=== PATIENT | male | born 1970 | race Caucasian/White ===

== ENCOUNTER 2016-11-10 09:21 | Inpatient (IN) | payer OTHER ==
--- NOTE | 2016-11-10 09:51 | HP ---
CIWA Score - CIWA Score Nausea/Vomitin-Mild Nausea/No Vomiting Muscle Tremors: 1-None Visible, but [place] Anxiety: 4-Mod. Anxious/Guarded Agitation: 1-Slight > Activity Paroxysmal Sweats: 1-Minimal Palms Moist Orientation: 0-Oriented Tacttile Disturbances: 1-Very Mild Itch/Numbness Auditory Disturbances: 1-Very Mild Visual Disturbances: 2-Mild Sensitivity Headache: 2-Mild CIWA-Ar Total Score: 14 Admission ROS [facility] - HPI Chief Complaint: I want my life back, to get off drugs. Allergies/Adverse Reactions: Allergies Allergy/AdvReac Type Severity Reaction Status Date / Time No Known Allergies Allergy Verified 12/21/13 10:28 History of Present Illness: 46 yo gentleman here for detox from alcohol, alprazolam, also using marijuana, cocaine, and recreational suboxone. No seizures. Previous detox here in 2013 and [facility] - thinks a month ago. States his partner last year from overdose and he is trying to get clean and straight and return to working. Exam Limitations: Clinical Condition - Ebola screening Have you traveled outside of the country in the last 21 days: No Have you had contact with anyone from an Ebola affected area: No Have you been sick,other than usual withdrawal symptoms: No Do you have a fever: No - Review of Systems Constitutional: Malaise, Changes in sleep, Weakness, Unexplained wgt Loss EENT: reports: No Symptoms Reported Respiratory: reports: No Symptoms reported Cardiac: reports: No Symptoms Reported GI: reports: Poor Appetite : reports: Frequency Musculoskeletal: reports: No Symptoms Reported Integumentary: reports: Dryness Neuro: reports: Headache Endocrine: reports: No Symptoms Reported Hematology: reports: No Symptoms Reported Psychiatric: reports: Judgement Intact, Mood/Affect Appropiate, Orientated x3, Anxious Other Systems: Reviewed and Negative Patient History - Patient Medical History Hx Anemia: No Hx Asthma: No Hx Chronic Obstructive Pulmonary Disease (COPD): No Hx Cancer: No Hx Cardiac Disorders: No Hx Congestive Heart Failure: No Hx Hypertension: No Hx Pacemaker: No HX Cerebrovascular Accident: No Hx Seizures: No Hx Dementia: No Hx Diabetes: No Hx Gastrointestinal Disorders: No Hx Liver Disease: No Hx Genitourinary Disorders: No Hx Sexually Transmitted Disorders: Yes (treated with PCN years ago) Hx Renal Disease (ESRD): No Hx Thyroid Disease: No Hx Human Immunodeficiency Virus (HIV): Yes (since 2002 - on meds, CD4 about 350 , tx at [facility]) Hx Hepatitis C: No Hx Depression: No Hx Suicide Attempt: No Hx Bipolar Disorder: No Hx Schizophrenia: No - Patient Surgical History Past Surgical History: No Hx Neurologic Surgery: No Hx Cataract Extraction: No Hx Cardiac Surgery: No Hx Lung Surgery: No Hx Breast Surgery: No Hx Breast Biopsy: No Hx Abdominal Surgery: No Hx Appendectomy: No Hx Cholecystectomy: No Hx Genitourinary Surgery: No Hx Section: No Hx Orthopedic Surgery: No Anesthesia Reaction: No - PPD History Previous Implant?: Yes Documented Results: Negative w/o proof Date: 06/14/13 Results: 0 mm PPD to be Administered?: Yes - Reproductive History Patient is a Female of Child Bearing Age (11 -55 yrs old): No (male) - Smoking Cessation Smoking history: Current every day smoker Have you smoked in the past 12 months: Yes Aproximately how many cigarettes per day: 2 Cigars Per Day: 0 Hx Chewing Tobacco Use: No Initiated information on smoking cessation: Yes 'Breaking Loose' booklet given: 11/10/16 (give on floor) - Substance & Tx. History Hx Alcohol Use: Yes Hx Substance Use: Yes Substance Use Type: Alcohol, Cocaine, Marijuana, Tranquilizers Hx Substance Use Treatment: Yes (detox , rehab) - Substances Abused Alcohol Route: Oral Frequency: Daily Amount used: 2 pints vodka Age of first use: 23 Date of Last Use: 11/10/16 Cocaine Route: Inhalation Frequency: 1-2 times per week Amount used: $20 Age of first use: 23 Date of Last Use: 11/09/16 Marijuana/Hashish Route: Smoking Frequency: Daily Amount used: $20 Age of first use: 9 Date of Last Use: 11/10/16 Alprazolam (Xanax) Route: Oral Frequency: 1-2 times per week Amount used: 4mg Age of first use: 46 Date of Last Use: 11/07/16 Buprenorphine Route: Oral Frequency: 3-6 times per week Amount used: 8mg Age of first use: 46 Date of Last Use: 11/08/16 Family Disease History - Family Disease History Family Disease History: Other: Father (IVDU,bio father ), Mother (bio mom , AIDS, ) Admission Physical Exam [facility] - Vital Signs Vital Signs: Vital Signs - 24 hr 11/10/16 09:39 Temperature 96 F L Pulse Rate 89 Respiratory 20 Rate Blood Pressure 120/70 - Physical General Appearance: Yes: Nourished, Appropriately Dressed, Mild Distress, Anxious HEENTM: Yes: Hearing grossly Normal, Normal ENT Inspection, Normocephalic, Normal Voice, Pharynx Normal Respiratory: Yes: Normal Breath Sounds, No Respiratory Distress Neck: Yes: No masses,lesions,Nodules, Supple Breast: Yes: Breast Exam Deferred Cardiology: Yes: Regular Rhythm, Regular Rate Abdominal: Yes: Flat, Soft Genitourinary: Yes: Frequency Back: Yes: Normal Inspection Musculoskeletal: Yes: full range of Motion, Gait Steady Extremities: Yes: Normal Inspection, Normal Range of Motion, Non-Tender Neurological: Yes: Fully Oriented, Alert, Normal Mood/Affect, Normal Response Integumentary: Yes: Normal Color, Warm Lymphatic: Yes: Within Normal Limits - Diagnostic (1) Alcohol dependence Current Visit: Yes Status: Chronic (2) Cannabis dependence Current Visit: Yes Status: Chronic (3) Cocaine dependence Current Visit: Yes Status: Chronic (4) Human immunodeficiency virus infection Current Visit: No Status: Active (5) Weight decreased Current Visit: Yes Status: Chronic (6) Moderate alprazolam dependence Current Visit: Yes Status: Chronic (7) History of syphilis Current Visit: Yes Status: Chronic Comment: treated years ago Cleared for Admission [facility] - Detox or Rehab [facility] Level of Care: Medically Managed Detox Regimen/Protocol: Librium [facility] Breath Alcohol Content Breath Alcohol Content: 0.036 Urine Drug Screen - Results Drug Screen Negative: No Urine Drug Screen Results: THC-Marijuana, CHUCHO-Cocaine
[2016-11-10] MEDS ORDERED: P-EPHED 60MG/TRIPROLIDI 2.5MG TABLET PO PRN (10:07)
[2016-11-10] MEDS ORDERED: hydrOXYzine PAMOATE 50 MG CAPSULE (FP) PO PRN (10:07)
[2016-11-10] MEDS ORDERED: IBUPROFEN 400 MG TABLET (FP) PO PRN (10:07)
[2016-11-10] MEDS ORDERED: MAGNESIUM HYDROX 2400MG/30ML ORAL SUSPENSION 30 ML CUP PO PRN (10:07)
[2016-11-10] MEDS ORDERED: MAGNESIUM CITRATE 300 ML BOTTLE PO PRN (10:07)
[2016-11-10] MEDS ORDERED: MENTHOL/PHENOL 1 EACH UD MM PRN (10:07)
[2016-11-10] MEDS ORDERED: guaiFENesin/D-METHORPHAN HB 10 ML UNIT-DOSE CUPS PO PRN (10:07)
[2016-11-10] MEDS ORDERED: chlordiazePOXIDE HCL 25 MG CAPSULE PO PRN (10:07)
[2016-11-10] MEDS ORDERED: MAG HYDROX/AL HYDROX/SIMETH 30 ML UNIT-DOSE CUP PO PRN (10:07)
[2016-11-10] MEDS ORDERED: LOPERAMIDE HCL 2 MG CAPSULE PO PRN (10:07)
[2016-11-10] MEDS ORDERED: diphenhydrAMINE HCL 50 MG CAPSULE PO PRN (10:07)
[2016-11-10] MEDS ORDERED: chlordiazePOXIDE HCL 25 MG CAPSULE PO ONE (11:30)
[2016-11-10] MEDS: chlordiazePOXIDE HCL 25 MG CAPSULE PO SCH ×2 (17:38→22:39)
[2016-11-10 18:20] LABS: URINE APPEARANCE CLEAR; URINE BILIRUBIN NEGATIVE (NEGATIVE); URINE BLOOD NEGATIVE (NEGATIVE); URINE COLOR STRAW; URINE GLUCOSE (UA) NEGATIVE (NEGATIVE); URINE KETONE NEGATIVE (NEGATIVE); URINE LEUK ESTERASE NEGATIVE (NEGATIVE); URINE NITRITE NEGATIVE (NEGATIVE); URINE PROTEIN NEGATIVE (NEGATIVE); URINE UROBILINOGEN NEGATIVE mg/dL (0.2-1.0)
[2016-11-10] MEDS: THIAMINE HCL 100 MG TABLET (FP) PO SCH (22:39)
[2016-11-10] MEDS: ACETAMINOPHEN 325 MG TABLET (FP) PO PRN (22:41)
[2016-11-11] MEDS: chlordiazePOXIDE HCL 25 MG CAPSULE PO SCH ×4 (05:30→23:17)
--- NOTE | 2016-11-11 08:11 | EKG ---
Test Reason : Blood Pressure : / mmHG Vent. Rate : 060 BPM Atrial Rate : 060 BPM P-R Int : 116 ms QRS Dur : 096 ms QT Int : 434 ms P-R-T Axes : 050 076 064 degrees QTc Int : 434 ms NORMAL SINUS RHYTHM VOLTAGE CRITERIA FOR LEFT VENTRICULAR HYPERTROPHY ABNORMAL ECG NO PREVIOUS ECGS AVAILABLE Confirmed by ALBIN VALLEJO MD ([id number]) on 11/11/2016 8:10:35 AM Referred By: Confirmed By:ALBIN VALLEJO MD
[2016-11-11 09:18] LABS: MCHC 33.3 g/dl (32.0-35.9); MEAN CELL VOLUME 93.1 fl (80-96); MEAN PLT VOLUME 8.6 fl (7.5-11.1); PLATELET COUNT 177 K/MM3 (134-434); RDW 13.9 % (11.9-15.9); WHITE BLOOD COUNT 4.4 K/mm3 (4.0-10.0)
[2016-11-11 09:49] LABS: ALBUMIN 3.5 g/dl (3.4-5.0); ANION GAP 4 (8-16); CALCIUM 8.9 mg/dL (8.5-10.1); CO2 31 mmol/L (21-32); CREATININE 1.1 mg/dL (0.7-1.3); GLUCOSE,RANDOM 86 mg/dL (74-106); SGOT/AST 32 U/L (15-37); SGPT/ALT 33 U/L (12-78)
[2016-11-11 09:50] LABS: ALK PHOS 71 U/L (45-117); BILIRUBIN,TOTAL 0.4 mg/dL (0.2-1.0); TOT PROT 6.8 g/dl (6.4-8.2)
[2016-11-11] MEDS ORDERED: PRENATAL VITAMINS W/ FOLIC ACID TABLET (FP) PO SCH (10:00)
--- NOTE | 2016-11-11 12:24 | PN ---
S CIWA - CIWA Score Nausea/Vomitin Muscle Tremors: 3 Anxiety: 3 Agitation: 2 Paroxysmal Sweats: 1-Minimal Palms Moist Orientation: 0-Oriented Tacttile Disturbances: 1-Very Mild Itch/Numbness Auditory Disturbances: 1-Very Mild Visual Disturbances: 1-Very Mild Sensitivity Headache: 2-Mild CIWA-Ar Total Score: 17 BHS Progress Note (SOAP) Subjective: ALERT,IRRITABLE,ANXIOUS,INTERRUPTED SLEEP,TREMOR Objective: 11/11/16 12:22 Vital Signs Temperature 98.4 F 11/11/16 10:29 Pulse Rate 61 11/11/16 10:29 Respiratory Rate 18 11/11/16 10:29 Blood Pressure 104/65 11/11/16 10:29 O2 Sat by Pulse Oximetry (%) EKG NSR Laboratory Last Values WBC 4.4 K/mm3 (4.0-10.0) 11/11/16 07:40 RBC 4.55 M/mm3 (4.00-5.60) 11/11/16 07:40 Hgb 14.1 GM/dL (11.7-16.9) D 11/11/16 07:40 Hct 42.3 % (35.4-49) 11/11/16 07:40 MCV 93.1 fl (80-96) 11/11/16 07:40 MCH 31.0 pg (25.7-33.7) 11/11/16 07:40 MCHC 33.3 g/dl (32.0-35.9) 11/11/16 07:40 RDW 13.9 % (11.9-15.9) 11/11/16 07:40 Plt Count 177 K/MM3 (134-434) 11/11/16 07:40 MPV 8.6 fl (7.5-11.1) D 11/11/16 07:40 Sodium 139 mmol/L (136-145) 11/11/16 07:40 Potassium 3.7 mmol/L (3.5-5.1) 11/11/16 07:40 Chloride 104 mmol/L (98-107) 11/11/16 07:40 Carbon Dioxide 31 mmol/L (21-32) D 11/11/16 07:40 Anion Gap 4 (8-16) L 11/11/16 07:40 BUN 23 mg/dL (7-18) H D 11/11/16 07:40 Creatinine 1.1 mg/dL (0.7-1.3) 11/11/16 07:40 Creat Clearance w eGFR > 60 (>60) 11/11/16 07:40 Random Glucose 86 mg/dL (74-106) D 11/11/16 07:40 Calcium 8.9 mg/dL (8.5-10.1) 11/11/16 07:40 Total Bilirubin 0.4 mg/dL (0.2-1.0) D 11/11/16 07:40 AST 32 U/L (15-37) 11/11/16 07:40 ALT 33 U/L (12-78) D 11/11/16 07:40 Alkaline Phosphatase 71 U/L (45-117) 11/11/16 07:40 Total Protein 6.8 g/dl (6.4-8.2) 11/11/16 07:40 Albumin 3.5 g/dl (3.4-5.0) D 11/11/16 07:40 Urine Color Straw 11/10/16 14:27 Urine Appearance Clear 11/10/16 14:27 Urine pH 7.0 (5.0-8.0) D 11/10/16 14:27 Ur Specific [place] 1.010 (1.005-1.025) 11/10/16 14:27 Urine Protein Negative (NEGATIVE) 11/10/16 14:27 Urine Glucose (UA) Negative (NEGATIVE) 11/10/16 14:27 Urine Ketones Negative (NEGATIVE) 11/10/16 14:27 Urine Blood Negative (NEGATIVE) 11/10/16 14:27 Urine Nitrite Negative (NEGATIVE) 11/10/16 14:27 Urine Bilirubin Negative (NEGATIVE) 11/10/16 14:27 Urine Urobilinogen Negative mg/dL (0.2-1.0) 11/10/16 14:27 Ur Leukocyte Esterase Negative (NEGATIVE) 11/10/16 14:27 Assessment: 11/11/16 12:23 WITHDRAWAL SYMPTOM Plan: CONTINUE DETOX,ENCOURAGE ORAL FLUID
[2016-11-11 14:03] VITALS: TEMP 97.5
[2016-11-11] MEDS: ACETAMINOPHEN 325 MG TABLET (FP) PO PRN (17:47)
[2016-11-11 18:29] VITALS: BP 115/67; PULSE 71
--- NOTE | 2016-11-11 23:09 | PN ---
[facility] Progress Note Note: 'S NOTE: INFORMED AT ABOUT 11:00PM THAT THE PT. WANTS TO SIGN OUT AMA FOR PERSONAL REASONS SO, THE PT. SIGNED OUT AMA AND ABOUT TO LEAVE THE FACILITY SOON IN STABLE CONDITION. RECOMMENDED: TO F/U WITH PMD AND OUT PT. PROGRAMS. PROVIDER: SADIE ZELAYA MD
[2016-11-11] MEDS: THIAMINE HCL 100 MG TABLET (FP) PO SCH (23:16)
[2016-11-12] MEDS ORDERED: chlordiazePOXIDE 5 MG CAPSULE PO SCH (17:00)
[2016-11-13] MEDS ORDERED: chlordiazePOXIDE HCL 10 MG CAPSULE PO SCH (17:00)
== END 2016-11-11 23:00 | disposition left against medical advice (07) | DRG 770 ==
LOC: YASAS 09:21 → Y6N 11:30
PROVIDERS: ADMIT Internal Medicine; ATTEND Internal Medicine
PROC: HZ2ZZZZ Detoxification Services for Substance Abuse Treatment (ICD-10-PCS; principal; 2016-11-10)
DX: F10.230 Alcohol dependence with withdrawal, uncomplicated (principal); F13.20 Sedative, hypnotic or anxiolytic dependence, uncomplicated; F14.20 Cocaine dependence, uncomplicated; F12.20 Cannabis dependence, uncomplicated; F17.210 Nicotine dependence, cigarettes, uncomplicated; Z21 Asymptomatic human immunodeficiency virus [HIV] infection status; Z87.438 Personal history of other diseases of male genital organs; Z87.898 Personal history of other specified conditions
CPT/HCPCS: 36415; 80053; 81003; 85027; 86593; 93005; 93010

== ENCOUNTER 2018-07-25 11:42 | Inpatient (IN) | payer OTHER ==
[2018-07-25 13:11] VITALS: BMI 19.5
--- NOTE | 2018-07-25 14:18 | HP ---
CIWA Score Nausea/Vomitin Muscle Tremors: 2 Anxiety: 2 Agitation: 2 Paroxysmal Sweats: 1-Minimal Palms Moist Orientation: 0-Oriented Tacttile Disturbances: 1-Very Mild Itch/Numbness Auditory Disturbances: 1-Very Mild Visual Disturbances: 0-None Headache: 2-Mild CIWA-Ar Total Score: 13 - Admission Criteria [facility] Guidelines: Admission for Medically Managed Detox: Requires at least one of the followin. CIWA greater than 12 2. Seizures within the past 24 hours 3. Delirium tremens within the past 24 hours 4. Hallucinations within the past 24 hours 5. Acute intervention needed for co occurring medical disorder 6. Acute intervention needed for co occurring psychiatric disorder 7. Severe withdrawal that cannot be handled at a lower level of care (continued vomiting, continued diarrhea, abnormal vital signs) requiring intravenous medication and/or fluids 8. Admission ROS [facility] Chief Complaint: i nee dhelp to stop drinking alcohol,xanax,cocaine and marijuana Allergies/Adverse Reactions: Allergies Allergy/AdvReac Type Severity Reaction Status Date / Time No Known Allergies Allergy Verified 07/25/18 13:03 History of Present Illness: this 47 yeas old male with alcohol,cocaine,xanax and marijuana dependence, seeking detox,withdrawal symptom, multiple admissions in detox but keep relapsing last detox 11/10/16 to 11/11/16 not completed weight loss nicotine dependence 4 cigarette/day,doest not want nicotine replacement longest period of sobriety 3 and half year plan for rehab after detox hiv since 2002 Exam Limitations: No Limitations - Ebola screening Have you traveled outside of the country in the last 21 days: No (N) Have you had contact with anyone from an Ebola affected area: No Do you have a fever: No - Review of Systems Constitutional: Loss of Appetite, Malaise, Night Sweats, Changes in sleep, Weakness, Unintentional Wgt. Loss EENT: reports: Nose Congestion Respiratory: reports: No Symptoms reported Cardiac: reports: No Symptoms Reported GI: reports: Nausea, Vomiting, Abdominal cramping : reports: No Symptoms Reported Musculoskeletal: reports: Back Pain, Muscle Pain Integumentary: reports: Dryness Neuro: reports: Headache, Tremors Endocrine: reports: No Symptoms Reported Hematology: reports: No Symptoms Reported, Other (hiv since 2002) Psychiatric: reports: No Sypmtoms Reported, Judgement Intact, Mood/Affect Appropiate, Orientated x3, other Other Systems: Reviewed and Negative Patient History - Patient Medical History Hx Anemia: No Hx Asthma: No Hx Chronic Obstructive Pulmonary Disease (COPD): No Hx Cancer: No Hx Cardiac Disorders: No Hx Congestive Heart Failure: No Hx Hypertension: No Hx Pacemaker: No HX Cerebrovascular Accident: No Hx Seizures: No Hx Dementia: No Hx Diabetes: No Hx Gastrointestinal Disorders: No Hx Liver Disease: No Hx Genitourinary Disorders: No Hx Sexually Transmitted Disorders: Yes (treated with PCN years ago,history of syphilis) Hx Renal Disease (ESRD): No Hx Thyroid Disease: No Hx Human Immunodeficiency Virus (HIV): Yes (since 2002 - on meds, CD4 about 350 , tx at [facility]) Hx Hepatitis C: No Hx Depression: No Hx Suicide Attempt: No Hx Bipolar Disorder: No Hx Schizophrenia: No Other Medical History: no sucidal,no homicidal,fx of right forearm at age of 21 years - Patient Surgical History Past Surgical History: No Hx Neurologic Surgery: No Hx Cataract Extraction: No Hx Cardiac Surgery: No Hx Lung Surgery: No Hx Breast Surgery: No Hx Breast Biopsy: No Hx Abdominal Surgery: No Hx Appendectomy: No Hx Cholecystectomy: No Hx Genitourinary Surgery: No Hx Section: No Hx Orthopedic Surgery: No Anesthesia Reaction: No - PPD History Previous Implant?: Yes Documented Results: Negative w/o proof Implanted On Prior R Admission?: Yes Date: 11/12/16 Results: 0 mm PPD to be Administered?: Yes - Smoking Cessation Smoking history: Current every day smoker Have you smoked in the past 12 months: Yes Aproximately how many cigarettes per day: 4 Cigars Per Day: 0 Hx Chewing Tobacco Use: No Initiated information on smoking cessation: Yes 'Breaking Loose' booklet given: 07/25/18 - Substance & Tx. History Hx Alcohol Use: Yes Hx Substance Use: Yes Substance Use Type: Alcohol, Cocaine, Marijuana, Tranquilizers Hx Substance Use Treatment: Yes ([facility] 11/10/16 to 11/11/16) - Substances abused Alcohol Substance route: Oral Frequency: Daily Amount used: 2 PINTS VODKA Age of first use: 23 Date of last use: 07/25/18 Alprazolam (Xanax) Substance route: Oral Frequency: Daily Amount used: 2-3 2MG Age of first use: 46 Date of last use: 07/25/18 Cocaine Other (specify): SNIFF Frequency: 1-2 times per week Amount used: $30 Age of first use: 23 Date of last use: 07/25/18 Marijuana/Hashish Substance route: Smoking Frequency: Daily Amount used: 20$ Age of first use: 9 Date of last use: 07/25/18 Family Disease History - Family Disease History Family Disease History: Other: Father (IVDU,bio father ), Mother (bio mom , AIDS, ) Admission Physical Exam [facility] - Vital Signs Vital Signs: Vital Signs - 24 hr 07/25/18 07/25/18 13:05 13:49 Temperature 98.5 F 98.5 F Pulse Rate 88 88 Respiratory 18 18 Rate Blood Pressure 90/59 L 90/59 L - Physical General Appearance: Yes: Moderate Distress, Tremorous, Irritable, Sweating, Anxious HEENTM: Yes: Normal ENT Inspection, Normocephalic, Pharynx Normal Respiratory: Yes: Lungs Clear, Normal Breath Sounds, No Respiratory Distress Neck: Yes: Within Normal Limits, Supple, Trachea in good position Breast: Yes: Within Normal Limits Abdominal: Yes: Within Normal Limits, Normal Bowel Sounds, Non Tender, Soft Genitourinary: Yes: Within Normal Limits Back: Yes: Muscle Spasm Musculoskeletal: Yes: Back pain, Muscle Pain Extremities: Yes: Tremors Neurological: Yes: Within Normal Limits, 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, Fully Oriented, Alert, Motor Strength 5/5 Integumentary: Yes: Dry - Diagnostic (1) Alcohol dependence with uncomplicated withdrawal Current Visit: Yes Status: Acute (2) Cannabis dependence Current Visit: No Status: Chronic (3) Uncomplicated sedative, hypnotic or anxiolytic withdrawal Current Visit: Yes Status: Acute (4) Human immunodeficiency virus infection Current Visit: No Status: Active (5) Syncope Current Visit: No Status: Active (6) Cocaine dependence Current Visit: No Status: Chronic (7) History of syphilis Current Visit: No Status: Chronic Comment: treated years ago (8) Weight decreased Current Visit: No Status: Chronic (9) Dehydration Current Visit: Yes Status: Acute Cleared for Admission S - Detox or Rehab [facility] Level of Care: Medically Managed Detox Regimen/Protocol: Valium Breathalyzer - Breathalyzer Breathalyzer: 0 Urine Drug Screen - Test Device Lot number: [id number] Expiration date: 03/07/20 - Control Is test valid?: Yes - Results Drug screen NEGATIVE: No Urine drug screen results: THC-Marijuana, CHUCHO-Cocaine, BZO-Benzodiazepines Inpatient Rehab Admission - Rehab Decision to Admit Inpatient rehab admission?: No
[2018-07-25] MEDS ORDERED: ACETAMINOPHEN 325 MG TABLET (FP) PO PRN (14:31)
[2018-07-25] MEDS ORDERED: MELATONIN 5 MG TABLETS PO PRN (14:31)
[2018-07-25] MEDS ORDERED: BISMUTH SUBSALICYLATE 262 MG/15 ML BTL PO PRN (14:31)
[2018-07-25] MEDS ORDERED: METHOCARBAMOL 500 MG TABLET PO PRN (14:31)
[2018-07-25] MEDS ORDERED: hydrOXYzine PAMOATE 25 MG CAPSULE (FP) PO PRN (14:31)
[2018-07-25] MEDS ORDERED: MENTHOL/PHENOL 1 EACH UD MM PRN (14:31)
[2018-07-25] MEDS ORDERED: MAG HYDROX/AL HYDROX/SIMETH 30 ML UNIT-DOSE CUP PO PRN (14:31)
[2018-07-25] MEDS ORDERED: MAGNESIUM HYDROX 2400MG/30ML ORAL SUSPENSION 30 ML CUP PO PRN (14:31)
[2018-07-25] MEDS ORDERED: MAGNESIUM CITRATE 300 ML BOTTLE PO PRN (14:31)
[2018-07-25] MEDS: diazePAM 5 MG TABLET PO PRN (15:30)
[2018-07-25 17:16] LABS: HEMATOCRIT 37.9 % (35.4-49); HEMOGLOBIN 12.7 GM/dL (11.7-16.9); MCH 30.2 pg (25.7-33.7); MCHC 33.4 g/dl (32.0-35.9); MEAN CELL VOLUME 90.3 fl (80-96); MEAN PLT VOLUME 8.7 fl (7.5-11.1); PLATELET COUNT 175 K/MM3 (134-434); RDW 13.1 % (11.9-15.9); WHITE BLOOD COUNT 2.7 K/mm3 (4.0-10.0)
[2018-07-25 17:26] LABS: ALBUMIN 3.6 g/dl (3.4-5.0); ALK PHOS 74 U/L (45-117); ANION GAP 4 MMOL/L (8-16); BILIRUBIN,TOTAL 0.4 mg/dL (0.2-1); BLOOD UREA NITROGEN 13 mg/dL (7-18); CALCIUM 8.7 mg/dL (8.5-10.1); CHLORIDE 106 mmol/L (98-107); CO2 29 mmol/L (21-32); CREATININE 0.8 mg/dL (0.55-1.3); GLUCOSE,RANDOM 78 mg/dL (74-106); POTASSIUM 3.6 mmol/L (3.5-5.1); SGOT/AST 80 U/L (15-37); SGPT/ALT 62 U/L (13-61); SODIUM 139 mmol/L (136-145); TOT PROT 8.3 g/dl (6.4-8.2)
[2018-07-25] MEDS: diazePAM 5 MG TABLET PO SCH (22:13)
[2018-07-25] MEDS: THIAMINE HCL 100 MG TABLET (FP) PO SCH (22:13)
[2018-07-26] MEDS: diazePAM 5 MG TABLET PO SCH ×3 (05:48→22:28)
[2018-07-26] MEDS: PRENATAL VITAMINS W/ FOLIC ACID TABLET (FP) PO SCH (09:39)
[2018-07-26] MEDS: diazePAM 5 MG TABLET PO PRN ×2 (09:39→18:48)
[2018-07-26] MEDS: ACETAMINOPHEN 325 MG TABLET (FP) PO PRN ×2 (11:21→22:28)
[2018-07-26] MEDS ORDERED: ONDANSETRON *ODT* 4 MG TABLET SL PRN (14:25)
--- NOTE | 2018-07-26 14:56 | PN ---
S CIWA - CIWA Score Nausea/Vomitin Muscle Tremors: None Anxiety: 3 Agitation: 1-Slight > Activity Paroxysmal Sweats: 3 Orientation: 0-Oriented Tacttile Disturbances: 2-Mild Itch/Numbness/Burn Auditory Disturbances: 0-None Visual Disturbances: 2-Mild Sensitivity Headache: 3-Moderate CIWA-Ar Total Score: 17 BHS Progress Note (SOAP) Subjective: Sweating, Anxious, Light Sensitivity, Poor Appetite, H/A, Nausea, Body Aches. Objective: PATIENT A & O X 3, OBSERVED AMBULATING ON UNIT UNASSISTED. IN NO ACUTE DISTRESS. 07/26/18 14:54 Vital Signs Temperature 97.1 F L 07/26/18 13:38 Pulse Rate 68 07/26/18 13:38 Respiratory Rate 18 07/26/18 13:38 Blood Pressure 111/64 07/26/18 13:38 O2 Sat by Pulse Oximetry (%) Laboratory Tests 07/25/18 07/25/18 07/25/18 14:20 14:20 14:20 WBC 2.7 L RBC 4.20 Hgb 12.7 Hct 37.9 MCV 90.3 MCH 30.2 MCHC 33.4 RDW 13.1 Plt Count 175 MPV 8.7 Sodium 139 Potassium 3.6 Chloride 106 Carbon Dioxide 29 Anion Gap 4 L BUN 13 Creatinine 0.8 Creat Clearance w eGFR 104.54 Random Glucose 78 Calcium 8.7 Total Bilirubin 0.4 AST 80 H ALT 62 H Alkaline Phosphatase 74 Total Protein 8.3 H Albumin 3.6 RPR Titer Nonreactive LABS NOTED. PATIENT HAS HAD LOW WBC LEVELS ON PREVIOUS ADMISSIONS. 07/26/18 14:55 Assessment: 07/26/18 14:55 WITHDRAWAL SYMPTOMS. LEUKOPENIA. Plan: CONTINUE DETOX. ENSURE PO BID FOR CALORIC SUPPLEMENTATION. PRN ZOFRAN SL FOR NAUSEA.
[2018-07-26] MEDS: IBUPROFEN 400 MG TABLET (FP) PO PRN (18:49)
[2018-07-26] MEDS: THIAMINE HCL 100 MG TABLET (FP) PO SCH (22:28)
[2018-07-27] MEDS: diazePAM 5 MG TABLET PO PRN ×3 (01:28→18:36)
[2018-07-27] MEDS: IBUPROFEN 400 MG TABLET (FP) PO PRN (05:58)
[2018-07-27] MEDS: PRENATAL VITAMINS W/ FOLIC ACID TABLET (FP) PO SCH (10:30)
[2018-07-27] MEDS: diazePAM 5 MG TABLET PO SCH ×2 (10:31→22:44)
--- NOTE | 2018-07-27 12:53 | PN ---
S CIWA - CIWA Score Nausea/Vomitin-Mild Nausea/No Vomiting Muscle Tremors: 4-Moderate,w/Arms Extend Anxiety: 3 Agitation: 3 Paroxysmal Sweats: 1-Minimal Palms Moist Orientation: 0-Oriented Tacttile Disturbances: 0-None Auditory Disturbances: 0-None Visual Disturbances: 0-None Headache: 1-Very Mild CIWA-Ar Total Score: 13 BHS Progress Note (SOAP) Subjective: feeling better than yesterday tremor headaches Objective: 07/27/18 12:52 Vital Signs Temperature 98.6 F 07/27/18 09:17 Pulse Rate 82 07/27/18 09:17 Respiratory Rate 18 07/27/18 09:17 Blood Pressure 110/79 07/27/18 09:17 O2 Sat by Pulse Oximetry (%) Laboratory Last Values WBC 2.7 K/mm3 (4.0-10.0) L 07/25/18 14:20 RBC 4.20 M/mm3 (4.00-5.60) 07/25/18 14:20 Hgb 12.7 GM/dL (11.7-16.9) 07/25/18 14:20 Hct 37.9 % (35.4-49) 07/25/18 14:20 MCV 90.3 fl (80-96) 07/25/18 14:20 MCH 30.2 pg (25.7-33.7) 07/25/18 14:20 MCHC 33.4 g/dl (32.0-35.9) 07/25/18 14:20 RDW 13.1 % (11.9-15.9) 07/25/18 14:20 Plt Count 175 K/MM3 (134-434) 07/25/18 14:20 MPV 8.7 fl (7.5-11.1) 07/25/18 14:20 Sodium 139 mmol/L (136-145) 07/25/18 14:20 Potassium 3.6 mmol/L (3.5-5.1) 07/25/18 14:20 Chloride 106 mmol/L (98-107) 07/25/18 14:20 Carbon Dioxide 29 mmol/L (21-32) 07/25/18 14:20 Anion Gap 4 MMOL/L (8-16) L 07/25/18 14:20 BUN 13 mg/dL (7-18) 07/25/18 14:20 Creatinine 0.8 mg/dL (0.55-1.3) 07/25/18 14:20 Creat Clearance w eGFR 104.54 (>60) 07/25/18 14:20 Random Glucose 78 mg/dL (74-106) 07/25/18 14:20 Calcium 8.7 mg/dL (8.5-10.1) 07/25/18 14:20 Total Bilirubin 0.4 mg/dL (0.2-1) 07/25/18 14:20 AST 80 U/L (15-37) H 07/25/18 14:20 ALT 62 U/L (13-61) H 07/25/18 14:20 Alkaline Phosphatase 74 U/L (45-117) 07/25/18 14:20 Total Protein 8.3 g/dl (6.4-8.2) H 07/25/18 14:20 Albumin 3.6 g/dl (3.4-5.0) 07/25/18 14:20 RPR Titer Nonreactive (NONREACTIVE) 07/25/18 14:20 lab noted patient is willing to return to infectious disease specialist for ART and follow up with low wbc Assessment: 07/27/18 12:53 withdrawal sx Plan: continue detox
[2018-07-27] MEDS: ACETAMINOPHEN 325 MG TABLET (FP) PO PRN (22:44)
[2018-07-27] MEDS: THIAMINE HCL 100 MG TABLET (FP) PO SCH (22:44)
[2018-07-28] MEDS: diazePAM 5 MG TABLET PO PRN ×2 (03:33→10:12)
[2018-07-28] MEDS ORDERED: diazePAM 5 MG TABLET PO SCH (06:00)
[2018-07-28 06:39] VITALS: TEMP 96.6
[2018-07-28 09:28] VITALS: BP 131/77; PULSE 75
[2018-07-28] MEDS: IBUPROFEN 400 MG TABLET (FP) PO PRN (09:28)
[2018-07-28] MEDS: PRENATAL VITAMINS W/ FOLIC ACID TABLET (FP) PO SCH (10:12)
--- NOTE | 2018-07-28 18:00 | DS ---
[facility] Detox Discharge Summary Admission Date: 07/25/18 Discharge Date: 07/28/18 - History Present History: Alcohol Dependence, Cannabis Dependence, Cocaine Dependence, Sedative Dependence Additional Comments: NO BEDS ARE CURRENTLY AVAILABLE FOR ADMISSION TO [facility] ( [place], [place]), PATIENT WILL RETURN HOME FOR THE TIME BEING AND [facility] TO INQUIRE ABOUT ADMISSION BED AVAILABILITY AT THAT TIME. PATIENT WAS DISCHARGED FROM DETOX UNIT IN STABLE MEDICAL CONDITION. Pertinent Past History: Nicotine Dependence, Weight Loss, H.I.V., History Of Syphilis (Treated), History Of Syncope, History Of Weight Loss, Dehydration. - Physical Exam Results Vital Signs: Vital Signs Temperature 96.6 F L 07/28/18 09:27 Pulse Rate 75 07/28/18 09:27 Respiratory Rate 18 07/28/18 09:27 Blood Pressure 131/77 07/28/18 09:27 O2 Sat by Pulse Oximetry (%) Pertinent Admission Physical Exam Findings: WITHDRAWAL SYMPTOMS. Laboratory Tests 07/25/18 07/25/18 07/25/18 14:20 14:20 14:20 WBC 2.7 L RBC 4.20 Hgb 12.7 Hct 37.9 MCV 90.3 MCH 30.2 MCHC 33.4 RDW 13.1 Plt Count 175 MPV 8.7 Sodium 139 Potassium 3.6 Chloride 106 Carbon Dioxide 29 Anion Gap 4 L BUN 13 Creatinine 0.8 Creat Clearance w eGFR 104.54 Random Glucose 78 Calcium 8.7 Total Bilirubin 0.4 AST 80 H ALT 62 H Alkaline Phosphatase 74 Total Protein 8.3 H Albumin 3.6 RPR Titer Nonreactive LABS NOTED. - Treatment Hospital Course: Detox Protocol Followed, Detoxed Safely, Responded well, Discharged Condition Good, Rehab Referral Accepted Patient has Accepted a Rehab Referral to: [facility] ([place], [place]). - Medication Discharge Medications: Ambulatory Orders Elviteg/Cob/Emtri/Tenof Alafen [Genvoya Tablet] 1 each PO DAILY 11/10/16 - Diagnosis (1) Human immunodeficiency virus infection Status: Active (2) Syncope Status: Active (3) Alcohol dependence with uncomplicated withdrawal Status: Acute (4) Dehydration Status: Acute (5) Uncomplicated sedative, hypnotic or anxiolytic withdrawal Status: Acute (6) Cannabis dependence Status: Chronic (7) Cocaine dependence Status: Chronic (8) History of syphilis Status: Chronic (9) Weight decreased Status: Chronic - AMA Did Patient Leave Against Medical Advice: No
== END 2018-07-28 11:00 | disposition home or self-care (01) | DRG 774 ==
LOC: YASAS 11:42 → Y3N 14:37
PROVIDERS: ADMIT Surgery; ATTEND Surgery
PROC: HZ2ZZZZ Detoxification Services for Substance Abuse Treatment (ICD-10-PCS; principal; 2018-07-25)
DX: F10.230 Alcohol dependence with withdrawal, uncomplicated (principal); F13.230 Sedative, hypnotic or anxiolytic dependence with withdrawal, uncomplicated; F14.20 Cocaine dependence, uncomplicated; F12.20 Cannabis dependence, uncomplicated; F17.213 Nicotine dependence, cigarettes, with withdrawal; Z21 Asymptomatic human immunodeficiency virus [HIV] infection status; E86.0 Dehydration; D72.818 Other decreased white blood cell count; R63.4 Abnormal weight loss; Z68.1 Body mass index [BMI] 19.9 or less, adult; Z86.19 Personal history of other infectious and parasitic diseases
CPT/HCPCS: 36415; 80053; 85027; 86593

== ENCOUNTER 2018-07-30 13:31 | Inpatient (IN) | payer OTHER ==
--- NOTE | 2018-07-30 16:19 | HP ---
CIWA Score - Admission Criteria OASAS Guidelines: Admission for Medically Managed Detox: Requires at least one of the followin. CIWA greater than 12 2. Seizures within the past 24 hours 3. Delirium tremens within the past 24 hours 4. Hallucinations within the past 24 hours 5. Acute intervention needed for co occurring medical disorder 6. Acute intervention needed for co occurring psychiatric disorder 7. Severe withdrawal that cannot be handled at a lower level of care (continued vomiting, continued diarrhea, abnormal vital signs) requiring intravenous medication and/or fluids 8. Admission ROS S - HPI Chief Complaint: Pt discharged from detox 07/28. Pt here for rehab from alcohol, xanax, THC, cocaine. From detox H and P: this 47 yeas old male with alcohol,cocaine,xanax and marijuana dependence, seeking detox,withdrawal symptom, pt started xanax about 18 months ago. multiple admissions in detox but keep relapsing last detox 11/10/16 to 11/11/16 not completed weight loss nicotine dependence 4 cigarette/day,doest not want nicotine replacement longest period of sobriety 3 and half year plan for rehab after detox hiv since 2002 Allergies/Adverse Reactions: Allergies Allergy/AdvReac Type Severity Reaction Status Date / Time No Known Allergies Allergy Verified 07/30/18 15:13 Exam Limitations: No Limitations - Ebola screening Have you traveled outside of the country in the last 21 days: No Have you had contact with anyone from an Ebola affected area: No Do you have a fever: No Patient History - Patient Medical History Hx Anemia: No Hx Asthma: No Hx Chronic Obstructive Pulmonary Disease (COPD): No Hx Cancer: No Hx Cardiac Disorders: No Hx Congestive Heart Failure: No Hx Hypertension: No Hx Pacemaker: No HX Cerebrovascular Accident: No Hx Seizures: No Hx Dementia: No Hx Diabetes: No Hx Gastrointestinal Disorders: No Hx Liver Disease: No Hx Genitourinary Disorders: No Hx Sexually Transmitted Disorders: No Hx Renal Disease (ESRD): No Hx Thyroid Disease: No Hx Human Immunodeficiency Virus (HIV): Yes (since 2002 - on meds, CD4 about 350 , tx at [facility]) Hx Hepatitis C: No Hx Depression: No Hx Suicide Attempt: No Hx Bipolar Disorder: No Hx Schizophrenia: No - Patient Surgical History Past Surgical History: No Hx Neurologic Surgery: No Hx Cataract Extraction: No Hx Cardiac Surgery: No Hx Lung Surgery: No Hx Breast Surgery: No Hx Breast Biopsy: No Hx Abdominal Surgery: No Hx Appendectomy: No Hx Cholecystectomy: No Hx Genitourinary Surgery: No Hx Section: No Hx Orthopedic Surgery: No Anesthesia Reaction: No - PPD History Date: 07/27/18 Results: 0 mm - Reproductive History Patient : No - Smoking Cessation Smoking history: Current every day smoker Have you smoked in the past 12 months: Yes Aproximately how many cigarettes per day: 4 Cigars Per Day: 0 Hx Chewing Tobacco Use: No Initiated information on smoking cessation: Yes 'Breaking Loose' booklet given: 07/30/18 - Substances abused Alcohol Substance route: Oral Frequency: Daily Amount used: 2 PINTS VODKA Age of first use: 23 Date of last use: 07/25/18 Alprazolam (Xanax) Substance route: Oral Frequency: Daily Amount used: 2-3 2MG Age of first use: 46 Date of last use: 07/25/18 Cocaine Other (specify): SNIFF Frequency: 1-2 times per week Amount used: $30 Age of first use: 23 Date of last use: 07/25/18 Marijuana/Hashish Substance route: Smoking Frequency: Daily Amount used: 20$ Age of first use: 9 Date of last use: 07/25/18 Family Disease History - Family Disease History Family Disease History: Other: Father (IVDU,bio father ), Mother (bio mom , AIDS, ) Admission Physical Exam S - Vital Signs Vital Signs: Vital Signs - 24 hr 07/30/18 15:11 Temperature 97.9 F Pulse Rate 75 Respiratory 18 Rate Blood Pressure 86/62 L - Physical General Appearance: Yes: Within Normal Limits HEENTM: Yes: Within Normal Limits Respiratory: Yes: Within Normal Limits Neck: Yes: Within Normal Limits Cardiology: Yes: Within Normal Limits Abdominal: Yes: Within Normal Limits Genitourinary: Yes: Within Normal Limits Back: Yes: Within Normal Limits Musculoskeletal: Yes: Within Normal Limits Extremities: Yes: Within Normal Limits Neurological: Yes: Within Normal Limits Integumentary: Yes: Within Normal Limits Lymphatic: Yes: Within Normal Limits Cleared for Admission BHS - Detox or Rehab Claeared for Rehab Admission: Yes Breathalyzer - Breathalyzer Breathalyzer: 0 Urine Drug Screen - Test Device Lot number: [id number] Expiration date: 03/07/20 - Control Is test valid?: Yes - Results Drug screen NEGATIVE: No Urine drug screen results: THC-Marijuana, CHUCHO-Cocaine, BZO-Benzodiazepines Inpatient Rehab Admission - Rehab Decision to Admit Inpatient rehab admission?: Yes - Initial Determination Are CD services needed?: Yes Free of communicable disease: Yes Not in need of hospitalization: Yes - Rehab Admission Criteria Previous failed treatment: Yes Poor recovery environment: Yes Comorbidities: Yes Lacks judgement: Yes Patient is meeting Inpatient Rehab admission criteria:: Yes (h/o multiple substance use disorder- detox completed)
[2018-07-30] MEDS ORDERED: ACETAMINOPHEN 325 MG TABLET (FP) PO PRN (16:21)
[2018-07-30] MEDS ORDERED: MAG HYDROX/AL HYDROX/SIMETH 30 ML UNIT-DOSE CUP PO PRN (16:21)
[2018-07-30] MEDS ORDERED: MAGNESIUM CITRATE 300 ML BOTTLE PO PRN (16:21)
[2018-07-30] MEDS ORDERED: MENTHOL/PHENOL 1 EACH UD MM PRN (16:21)
[2018-07-30] MEDS ORDERED: guaiFENesin 200 MG/10 ML 10 ML UNIT-DOSE CUPS PO PRN (16:21)
[2018-07-30] MEDS ORDERED: MAGNESIUM HYDROX 2400MG/30ML ORAL SUSPENSION 30 ML CUP PO PRN (16:21)
[2018-07-30] MEDS ORDERED: P-EPHED 60MG/TRIPROLIDI 2.5MG TABLET PO PRN (16:21)
[2018-07-30] MEDS ORDERED: IBUPROFEN 400 MG TABLET (FP) PO PRN (16:21)
[2018-07-30] MEDS ORDERED: LOPERAMIDE HCL 2 MG CAPSULE PO PRN (16:21)
[2018-07-30] MEDS ORDERED: hydrOXYzine PAMOATE 25 MG CAPSULE (FP) PO PRN (16:21)
[2018-07-30] MEDS ORDERED: cloNIDine HCL 0.1 MG TABLET PO PRN (16:22)
[2018-07-30] MEDS ORDERED: MELATONIN 5 MG TABLETS PO PRN (22:00)
[2018-07-30] MEDS: THIAMINE HCL 100 MG TABLET (FP) PO SCH (22:01)
[2018-07-30 23:11] LABS: URINE APPEARANCE CLEAR; URINE BILIRUBIN NEGATIVE (NEGATIVE); URINE COLOR YELLOW; URINE GLUCOSE (UA) NEGATIVE (NEGATIVE); URINE KETONE NEGATIVE (NEGATIVE); URINE LEUK ESTERASE NEGATIVE (NEGATIVE); URINE NITRITE NEGATIVE (NEGATIVE); URINE PROTEIN NEGATIVE (NEGATIVE)
[2018-07-31] MEDS: PRENATAL VITAMINS W/ FOLIC ACID TABLET (FP) PO SCH (10:13)
[2018-07-31] MEDS: THIAMINE HCL 100 MG TABLET (FP) PO SCH (21:44)
[2018-08-01] MEDS: PRENATAL VITAMINS W/ FOLIC ACID TABLET (FP) PO SCH (10:13)
[2018-08-01] MEDS ORDERED: COLLOIDAL OATMEAL 1 BAR EACH TP PRN (14:42)
[2018-08-01] MEDS: SELENIUM SULFIDE 2.5% LOTION 4 OZ. TP SCH (14:42)
--- NOTE | 2018-08-01 14:45 | PN ---
S Progress Note Note: C/O DRY ITCHY SCALP-HX DANDRUFF; DRY SKIN. Vital Signs 08/01/18 07:01 Temperature 97.4 F L Pulse Rate 62 Respiratory 16 Rate Blood Pressure 109/62 Laboratory Tests 07/30/18 22:50 Urine Color Yellow Urine Appearance Clear Urine pH 6.0 Ur Specific [place] 1.013 Urine Protein Negative Urine Glucose (UA) Negative Urine Ketones Negative Urine Blood Negative Urine Nitrite Negative Urine Bilirubin Negative Urine Urobilinogen 1.0 Ur Leukocyte Esterase Negative A:DRY SKIN SEBORRHEIC DERMATITIS PLAN:SELSUN LOTION DIRECTED AVEENO SOAP EUCERINE CREAM
[2018-08-01] MEDS: THIAMINE HCL 100 MG TABLET (FP) PO SCH (22:31)
[2018-08-02] MEDS: SELENIUM SULFIDE 2.5% LOTION 4 OZ. TP SCH (09:59)
[2018-08-02] MEDS: PRENATAL VITAMINS W/ FOLIC ACID TABLET (FP) PO SCH (09:59)
[2018-08-02] MEDS ORDERED: MINERAL OIL/PETROLAT/WATER TOPICAL CREAM 113 GM JAR TP SCH (10:00)
[2018-08-02] MEDS: THIAMINE HCL 100 MG TABLET (FP) PO SCH (21:15)
[2018-08-03] MEDS: SELENIUM SULFIDE 2.5% LOTION 4 OZ. TP SCH (09:59)
[2018-08-03] MEDS: PRENATAL VITAMINS W/ FOLIC ACID TABLET (FP) PO SCH (09:59)
[2018-08-03] MEDS: THIAMINE HCL 100 MG TABLET (FP) PO SCH (21:23)
[2018-08-04] MEDS: PRENATAL VITAMINS W/ FOLIC ACID TABLET (FP) PO SCH (09:51)
[2018-08-04] MEDS: SELENIUM SULFIDE 2.5% LOTION 4 OZ. TP SCH (09:51)
[2018-08-04] MEDS: THIAMINE HCL 100 MG TABLET (FP) PO SCH (23:53)
[2018-08-05 06:50] VITALS: BP 99/65; PULSE 62; TEMP 97.5
[2018-08-05] MEDS: PRENATAL VITAMINS W/ FOLIC ACID TABLET (FP) PO SCH (10:07)
[2018-08-05] MEDS: SELENIUM SULFIDE 2.5% LOTION 4 OZ. TP SCH (10:07)
--- NOTE | 2018-08-05 15:30 | PN ---
[facility] Progress Note Note: PT DECLINED TO CONTINUE WITH REHAB FOR PERSONAl REASONS. PT MET WITH HIS COUNSELOR JAIDA OLIVO AND WAS REFERRED TO [facility] ON [address], [place]. PT REPORTS HE HAS A PCP DR. BLAS AT [facility] PH:[phone]. ALERT O X 3. DENIES S/H/I. Home Medications Medication Instructions Recorded NK [No Known Home Medication] 07/30/18 Vital Signs (72 hours) 08/03/18 08/03/18 08/03/18 00:30 03:30 06:49 Temperature 97.5 F L Pulse Rate 77 Respiratory 18 18 16 Rate Blood Pressure 102/66 08/04/18 08/04/18 08/04/18 00:30 03:30 07:05 Temperature 97.7 F Pulse Rate 68 Respiratory 18 18 18 Rate Blood Pressure 137/70 08/05/18 08/05/18 08/05/18 00:30 03:30 06:50 Temperature 97.5 F L Pulse Rate 62 Respiratory 18 18 16 Rate Blood Pressure 99/65 Laboratory Tests 07/30/18 22:50 Urine Color Yellow Urine Appearance Clear Urine pH 6.0 Ur Specific [place] 1.013 Urine Protein Negative Urine Glucose (UA) Negative Urine Ketones Negative Urine Blood Negative Urine Nitrite Negative Urine Bilirubin Negative Urine Urobilinogen 1.0 Ur Leukocyte Esterase Negative NAD MEDICALLY STABLE PLAN:FOLLOW UP WITH CD AFTERCARE RECOMMENDATION FOLLOW UP WITH PCP WITHIN 1-2 WEEKS AFTER DISCHARGE.
== END 2018-08-05 16:35 | disposition left against medical advice (07) | DRG 770 ==
LOC: YASAS 13:31 → Y5N 16:33
PROVIDERS: ADMIT Neuromusculoskeletal Medicine & OMM; ATTEND Neuromusculoskeletal Medicine & OMM
PROC: HZ42ZZZ Group Counseling for Substance Abuse Treatment, Cognitive-Behavioral (ICD-10-PCS; principal; 2018-07-30)
DX: F10.20 Alcohol dependence, uncomplicated (principal); F13.20 Sedative, hypnotic or anxiolytic dependence, uncomplicated; F14.20 Cocaine dependence, uncomplicated; F12.20 Cannabis dependence, uncomplicated; Z21 Asymptomatic human immunodeficiency virus [HIV] infection status; L21.9 Seborrheic dermatitis, unspecified; L85.3 Xerosis cutis; R63.4 Abnormal weight loss; Z68.1 Body mass index [BMI] 19.9 or less, adult
CPT/HCPCS: 81003

== ENCOUNTER 2019-12-17 08:52 | Inpatient (IN) | payer OTHER ==
--- NOTE | 2019-12-17 09:35 | BHS.RME ---
Substance Use & Tx History - Substance Use History Alcohol Substance amount: 2.5 pints + beers 22 oz Frequency of use: Daily Substance route: Oral Date of Last Use: 12/17/19 Cocaine- Powder Substance amount: $40 Frequency of use: Less than 3 times per week Substance route: Inhalation (ex: sniffing or snorting) Date of Last Use: 12/16/19 Marijuana/Hashish Substance amount: $10-20 Frequency of use: Daily Substance route: Smoking Date of Last Use: 12/17/19 Nicotine Substance amount: 4 ciggs Frequency of use: Daily Substance route: Smoking Date of Last Use: 12/17/19 Physical/Psych/Mental Status - Behavior General Behavior: Increased activity (restlessness, agitation) Eye Contact: Normal - Cooperativeness Cooperativeness: Cooperative - Thinking Thought Processes: Tight, Logical, Goal Directed Thought content: Future oriented - Physical Health Problems Is patient presently having any pain?: No Does patient presently have any injuries (include location): No Does patient currently have a fever: No Is patient : No CIWA Nausea/Vomitin Muscle Tremors: 1-None Visible, but [place] Anxiety: 4-Mod. Anxious/Guarded Agitation: 4-Moderately Restless Paroxysmal Sweats: 3 Orientation: 0-Oriented Tacttile Disturbances: 0-None Auditory Disturbances: 0-None Visual Disturbances: 2-Mild Sensitivity Headache: 3-Moderate CIWA-Ar Total Score: 20
--- NOTE | 2019-12-17 10:15 | HP ---
CIWA Score Nausea/Vomitin Muscle Tremors: 1-None Visible, but [place] Anxiety: 4-Mod. Anxious/Guarded Agitation: 4-Moderately Restless Paroxysmal Sweats: 3 Orientation: 0-Oriented Tacttile Disturbances: 0-None Auditory Disturbances: 0-None Visual Disturbances: 2-Mild Sensitivity Headache: 3-Moderate CIWA-Ar Total Score: 20 - Admission Criteria OASAS Guidelines: Admission for Medically Managed Detox: Requires at least one of the followin. CIWA greater than 12 2. Seizures within the past 24 hours 3. Delirium tremens within the past 24 hours 4. Hallucinations within the past 24 hours 5. Acute intervention needed for co occurring medical disorder 6. Acute intervention needed for co occurring psychiatric disorder 7. Severe withdrawal that cannot be handled at a lower level of care (continued vomiting, continued diarrhea, abnormal vital signs) requiring intravenous medication and/or fluids 8. Admitting History and Physical - Admission Chief Complaint: Mr. Stuart is a 49 yo man who presents to [facility] stating "alcohol detox" is the reason for his admission. History of Present Illness: Mr. Stuart is a 49 yo man who presents to [facility] stating "alcohol detox" is the reason for his admission. He was last here between August 16 and August 18, 2019, left AMA PMH: HIV on no meds under direction of his provider, VL was undetectable, was on Genvoya and asked if he could "take a break", provider agreed to stop meds for now PSH: none Psych: none, pt asking for Psychiatry evaluation for "loss", no SI/HI SOC; lives alone in his own apartment Substance Use History Alcohol Substance amount: 2.5 pints + beers 22 oz Frequency of use: Daily Substance route: Oral Date of Last Use: 12/17/19 First use age 23 y NO seizure, no blackouts Admits to [facility] Cocaine- Powder Substance amount: $40 Frequency of use: Less than 3 times per week Substance route: Inhalation (ex: sniffing or snorting) Date of Last Use: 12/16/19 First use age: 23 y Marijuana/Hashish Substance amount: $10-20 Frequency of use: Daily Substance route: Smoking Date of Last Use: 12/17/19 First use age 9 y Nicotine Substance amount: 4 ciggs Frequency of use: Daily Substance route: Smoking Date of Last Use: 12/17/19 First use age 23 y History Source: Patient Limitations to Obtaining History: No Limitations - Past Medical History Infectious Disease: Yes: HIV Psych: Yes: Depression - Past Surgical History Past Surgical History: Yes: None - Smoking History Smoking history: Current every day smoker Have you smoked in the past 12 months: Yes Aproximately how many cigarettes per day: 4 - Alcohol/Substance Use Hx Alcohol Use: Yes History of Substance Use: reports: Cocaine, Marijuana - Social History ADL: Independent Occupation: unemployed, retail loss prevention specialist for HIV History of Recent Travel: No Admission ROS [facility] - [facility] Allergies/Adverse Reactions: Allergies Allergy/AdvReac Type Severity Reaction Status Date / Time No Known Allergies Allergy Verified 08/17/19 10:49 Exam Limitations: No Limitations - Ebola screening Have you traveled outside of the country in the last 21 days: No Have you been sick,other than usual withdrawal symptoms: No Do you have a fever: No - Review of Systems Constitutional: No Symptoms Reported EENT: reports: No Symptoms Reported Respiratory: reports: No Symptoms reported Cardiac: reports: No Symptoms Reported GI: reports: No Symptoms Reported : reports: No Symptoms Reported Musculoskeletal: reports: No Symptoms Reported Integumentary: reports: No Symptoms Reported Neuro: reports: No Symptoms reported Endocrine: reports: No Symptoms Reported Hematology: reports: No Symptoms Reported Psychiatric: reports: Anxious Patient History - Patient Medical History Hx Anemia: No Hx Asthma: No Hx Chronic Obstructive Pulmonary Disease (COPD): No Hx Cancer: No Hx Cardiac Disorders: No Hx Congestive Heart Failure: No Hx Hypertension: No Hx Pacemaker: No HX Cerebrovascular Accident: No Hx Seizures: No Hx Dementia: No Hx Diabetes: No Hx Gastrointestinal Disorders: No Hx Liver Disease: No Hx Genitourinary Disorders: No Hx Sexually Transmitted Disorders: Yes (HIV) Hx Renal Disease (ESRD): No Hx Thyroid Disease: No Hx Human Immunodeficiency Virus (HIV): Yes (since 2002 - on meds, CD4 about 350, tx at [facility]) Hx Hepatitis C: No Hx Depression: Yes Hx Suicide Attempt: No Hx Bipolar Disorder: No Hx Schizophrenia: No - Patient Surgical History Past Surgical History: No Hx Neurologic Surgery: No Hx Cataract Extraction: No Hx Cardiac Surgery: No Hx Lung Surgery: No Hx Breast Surgery: No Hx Breast Biopsy: No Hx Abdominal Surgery: No Hx Appendectomy: No Hx Cholecystectomy: No Hx Genitourinary Surgery: No Hx Section: No Hx Orthopedic Surgery: No Anesthesia Reaction: No - PPD History Date: 08/19/19 Results: 0 mm - Smoking Cessation Smoking history: Current every day smoker Have you smoked in the past 12 months: Yes Aproximately how many cigarettes per day: 4 Cigars Per Day: 0 Hx Chewing Tobacco Use: No Initiated information on smoking cessation: Yes 'Breaking Loose' booklet given: 12/17/19 (does not want path) Admission Physical Exam [facility] Physical General Appearance: Yes: No Apparent Distress, Nourished, Thin, Anxious HEENTM: Yes: EOMI, Hearing grossly Normal, Normocephalic, Normal Voice Respiratory: Yes: Lungs Clear, No Respiratory Distress, No Accessory Muscle Use Breast: Yes: Breast Exam Deferred Cardiology: Yes: Regular Rhythm, Regular Rate Abdominal: Yes: Non Tender, Flat, Soft, Decreased BS Genitourinary: Yes: Other (deferred) Back: Yes: Normal Inspection Musculoskeletal: Yes: Gait Steady Extremities: Yes: Normal Inspection, Non-Tender Neurological: Yes: Alert, Normal Response Integumentary: Yes: Within Normal Limits - Diagnostic (1) Alcohol dependence with uncomplicated withdrawal Current Visit: No Status: Acute Comment: 1. Admit for detox protocol, will start Librium 2. check routine labs today, last visit in July with nl liver function 3. counselor to see pt (2) Cannabis dependence Current Visit: No Status: Acute Comment: 1. psychoeducation as part of detox plan (3) Cocaine dependence Current Visit: Yes Status: Acute Comment: 1. Substance use education during inpatient stay (4) Drug-induced mood disorder Current Visit: Yes Status: Acute Comment: 1. pt asking to see Psychiatry for feelings of "loss", will place consult (5) HIV (human immunodeficiency virus infection) Current Visit: Yes Status: Acute Comment: 1. Pt currently on drug holiday under provider care, was on Genvoya 2. rec: follow up with provider post discharge Cleared for Admission [facility] - Detox or Rehab [facility] Level of Care: Medically Managed Detox Regimen/Protocol: Librium Breathalyzer - Breathalyzer Breathalyzer: 0 Urine Drug Screen - Test Device Lot number: [id number] Expiration date: 07/14/21 - Control Is test valid?: Yes - Results Drug screen NEGATIVE: No Urine drug screen results: THC-Marijuana, CHUCHO-Cocaine Inpatient Rehab Admission - Rehab Decision to Admit Inpatient rehab admission?: No
[2019-12-17] MEDS ORDERED: BISMUTH SUBSALICYLATE 524 MG/30 ML UD PO PRN (10:22)
[2019-12-17] MEDS ORDERED: IBUPROFEN 400 MG TABLET (FP) PO PRN (10:22)
[2019-12-17] MEDS ORDERED: MAGNESIUM CITRATE 300 ML BOTTLE PO PRN (10:22)
[2019-12-17] MEDS ORDERED: MAGNESIUM HYDROX 2400MG/30ML ORAL SUSPENSION 30 ML CUP PO PRN (10:22)
[2019-12-17] MEDS ORDERED: MAG HYDROX/AL HYDROX/SIMETH 30 ML UNIT-DOSE CUP PO PRN (10:22)
[2019-12-17] MEDS ORDERED: ONDANSETRON *ODT* 4 MG TABLET SL PRN (10:22)
[2019-12-17] MEDS ORDERED: NICOTINE POLACRILEX 2 MG GUM BUC PRN (10:22)
[2019-12-17] MEDS ORDERED: ACETAMINOPHEN 325 MG TABLET (FP) PO PRN ×2 (10:22)
[2019-12-17] MEDS ORDERED: chlordiazePOXIDE HCL 25 MG CAPSULE PO PRN (10:22)
[2019-12-17] MEDS ORDERED: MENTHOL/PHENOL 1 EACH UD MM PRN (10:22)
[2019-12-17 10:44] VITALS: BMI 19.5
[2019-12-17] MEDS: chlordiazePOXIDE HCL 25 MG CAPSULE PO SCH ×3 (12:14→22:41)
[2019-12-17] MEDS: hydrOXYzine PAMOATE 25 MG CAPSULE (FP) PO SCH ×3 (14:26→22:44)
[2019-12-17 17:34] LABS: HEMATOCRIT 34.2 % (35.4-49); HEMOGLOBIN 11.7 GM/dL (11.7-16.9); MCH 30.4 pg (25.7-33.7); MCHC 34.2 g/dl (32.0-35.9); MEAN CELL VOLUME 88.9 fl (80-96); MEAN PLT VOLUME 8.9 fl (7.5-11.1); PLATELET COUNT 194 K/MM3 (134-434); RBC 3.84 M/mm3 (4.00-5.60); RDW 14.6 % (11.9-15.9); WHITE BLOOD COUNT 3.8 K/mm3 (4.0-10.0)
[2019-12-17 17:45] LABS: ALBUMIN 3.5 g/dl (3.4-5.0); BILIRUBIN,TOTAL 0.5 mg/dL (0.2-1); BLOOD UREA NITROGEN 14.9 mg/dL (7-18); CALCIUM 8.9 mg/dL (8.5-10.1); CREATININE 1.2 mg/dL (0.55-1.3); POTASSIUM 3.2 mmol/L (3.5-5.1); TOT PROT 8.5 g/dl (6.4-8.2)
[2019-12-17] MEDS: THIAMINE HCL 100 MG TABLET (FP) PO SCH (22:42)
[2019-12-17] MEDS: MELATONIN 5 MG TABLETS PO SCH (22:44)
[2019-12-18] MEDS: chlordiazePOXIDE HCL 25 MG CAPSULE PO SCH ×4 (05:33→22:28)
[2019-12-18] MEDS: hydrOXYzine PAMOATE 25 MG CAPSULE (FP) PO SCH ×5 (05:34→22:28)
[2019-12-18] MEDS ORDERED: POTASSIUM CHLORIDE TABS 20 MEQ TABLET.ER (FP) PO ONE (09:24)
--- NOTE | 2019-12-18 09:27 | PN ---
S CIWA - CIWA Score Nausea/Vomitin-No Nausea/No Vomiting Muscle Tremors: None Anxiety: 3 Agitation: 3 Paroxysmal Sweats: 2 Orientation: 0-Oriented Tacttile Disturbances: 0-None Auditory Disturbances: 0-None Visual Disturbances: 0-None Headache: 0-None Present CIWA-Ar Total Score: 8 BHS Progress Note (SOAP) Subjective: Patient is a 49 y/o male with a history of HIV who is here for Alcohol detox. States he is feeling anxious today, interested in talking to someone. Objective: 12/18/19 09:26 Vital Signs Temperature 96.9 F L 12/18/19 05:29 Pulse Rate 75 12/18/19 05:29 Respiratory Rate 20 12/18/19 05:29 Blood Pressure 107/66 12/18/19 05:29 O2 Sat by Pulse Oximetry (%) 98 12/18/19 05:29 Physical Exam general: WNNL, awake, alert HEENT: hearing intact, normocephalic Neuro: ROM intact, gait normal skin: intact dry CBC, BMP 12/17/19 13:40 12/17/19 13:40 Active Medications Acetaminophen (Tylenol -) 650 mg PO Q6H PRN PRN Reason: PAIN LEVEL 4 - 6 Last Admin: 12/17/19 12:14 Dose: 650 mg Documented by: Acetaminophen (Tylenol -) 650 mg PO Q6H PRN PRN Reason: FEVER Al Hydroxide/Mg Hydroxide (Mylanta Oral Suspension -) 30 ml PO Q6H PRN PRN Reason: DYSPEPSIA Bismuth Subsalicylate (Pepto-Bismol -) 524 mg PO Q1H PRN PRN Reason: DIARRHEA Chlordiazepoxide HCl (Librium -) 50 mg PO [id number] PRASAD Stop: 12/18/19 23:01 Last Admin: 12/18/19 05:33 Dose: 50 mg Documented by: Chlordiazepoxide HCl (Librium -) 25 mg PO [id number] PRASAD Stop: 12/19/19 23:01 Chlordiazepoxide HCl (Librium -) 25 mg PO Q4H PRN PRN Reason: WITHDRAWAL(CONT SUBST) Stop: 12/19/19 23:59 Chlordiazepoxide HCl (Librium -) 10 mg PO [id number] PRASAD Stop: 12/20/19 23:01 Chlordiazepoxide HCl (Librium -) 10 mg PO Q12H [facility] Stop: 12/21/19 17:01 Chlordiazepoxide HCl (Librium -) 10 mg PO Q4H PRN PRN Reason: WITHDRAWAL(CONT SUBST) Stop: 12/21/19 00:00 Chlordiazepoxide HCl (Librium -) 10 mg PO ONCE@0500 ONE Stop: 12/22/19 05:01 Eucalyptus/Menthol/Phenol/Sorbitol (Cepastat Lozenge -) 1 each MM Q4H PRN PRN Reason: SORE THROAT Stop: 12/23/19 10:22 Hydroxyzine Pamoate ([facility]il -) [facility] Stop: 12/23/19 10:22 Last Admin: 12/18/19 05:34 Dose: Not Given Documented by: Ibuprofen (Motrin -) 400 mg PO Q6H PRN PRN Reason: PAIN LEVEL 1 - 3 Magnesium Citrate (Citroma -) 300 ml PO Q48H PRN PRN Reason: CONSTIPATION Magnesium Hydroxide (Milk Of Magnesia -) 30 ml PO PRN PRN PRN Reason: CONSTIPATION Melatonin (Melatonin) 5 mg PO [facility] Last Admin: 12/17/19 22:44 Dose: Not Given Documented by: Methocarbamol (Robaxin -) 500 mg PO Q6H PRN PRN Reason: MUSCLE SPASMS Stop: 12/23/19 10:22 Nicotine (Nicoderm Patch -) 7 mg TD DAILY [facility] Nicotine Polacrilex (Nicorette Gum -) 2 mg BUC Q2H PRN PRN Reason: NICOTINE REPLACEMENT RX Ondansetron HCl (Zofran Odt -) 4 mg SL Q8H PRN PRN Reason: Nausea/Vomiting Last Admin: 12/17/19 12:14 Dose: 4 mg Documented by: Potassium Chloride (K-Dur -) 40 meq PO ONCE ONE Stop: 12/18/19 09:25 Multivit/Folic Acid/Iron ( Vitamins (Sjr) -) 1 tab PO DAILY [facility] Thiamine HCl (Vitamin B1 -) 100 mg PO [facility] Last Admin: 12/17/19 22:42 Dose: 100 mg Documented by: Assessment: 12/18/19 09:26 1. Alcohol dependence with withdrawl 2. HIV 3. hypokalemia 4. anxiety Plan: 1. Continue Librium detox 2. not currently treated for HIV 3. kdur 40, f/u K tomorrow 4. f/u with psychiatry for anxiety 5. positive syphilis and positive RPR titer, has been treated in the pat
[2019-12-18] MEDS: PRENATAL VITAMINS W/ FOLIC ACID TABLET (FP) PO SCH (10:16)
[2019-12-18] MEDS: NICOTINE 7 MG/24 HOURS TOPICAL PATCH TD SCH (10:19)
--- NOTE | 2019-12-18 12:45 | CONSULT ---
[facility] Psychiatric Consult - Data Date of interview: 12/18/19 Admission source: [facility] Identifying data: Patient is approached at bedside for psychiatric evaluation. Mr Stuart declines. " I am fine. I don't need to talk to psychiatrists. Thank you." Nursing staff is made aware.
[2019-12-18] MEDS: THIAMINE HCL 100 MG TABLET (FP) PO SCH (22:28)
[2019-12-18] MEDS: MELATONIN 5 MG TABLETS PO SCH (22:29)
[2019-12-19] MEDS: hydrOXYzine PAMOATE 25 MG CAPSULE (FP) PO SCH ×5 (06:33→22:27)
[2019-12-19] MEDS: chlordiazePOXIDE HCL 25 MG CAPSULE PO SCH ×4 (06:33→22:28)
[2019-12-19] MEDS: PRENATAL VITAMINS W/ FOLIC ACID TABLET (FP) PO SCH (10:40)
[2019-12-19] MEDS: NICOTINE 7 MG/24 HOURS TOPICAL PATCH TD SCH (10:40)
--- NOTE | 2019-12-19 13:38 | PN ---
S CIWA - CIWA Score Nausea/Vomitin-No Nausea/No Vomiting Muscle Tremors: None Anxiety: 2 Agitation: 1-Slight > Activity Paroxysmal Sweats: 3 Orientation: 0-Oriented Tacttile Disturbances: 0-None Auditory Disturbances: 0-None Visual Disturbances: 0-None Headache: 1-Very Mild CIWA-Ar Total Score: 7 BHS Progress Note (SOAP) Subjective: c/o sweats, anxiety, and headache. Objective: 12/19/19 13:37 Vital Signs 12/19/19 12/19/19 06:30 08:52 Temperature 97.7 F 97.7 F Pulse Rate 75 86 Respiratory 20 18 Rate Blood Pressure 112/79 104/68 O2 Sat by Pulse 93 L Oximetry (%) Assessment: 12/19/19 13:37 AOX3, in no acute respiratory distress. Full ROM, ambulating in the unit. Withdrawal symptoms. Plan: continue detox.
[2019-12-19] MEDS: THIAMINE HCL 100 MG TABLET (FP) PO SCH (22:27)
[2019-12-19] MEDS: MELATONIN 5 MG TABLETS PO SCH (22:28)
[2019-12-20] MEDS ORDERED: chlordiazePOXIDE HCL 10 MG CAPSULE PO PRN
[2019-12-20] MEDS: hydrOXYzine PAMOATE 25 MG CAPSULE (FP) PO SCH ×5 (06:20→22:51)
[2019-12-20] MEDS: chlordiazePOXIDE HCL 10 MG CAPSULE PO SCH ×4 (06:21→22:51)
--- NOTE | 2019-12-20 09:46 | PN ---
S CIWA - CIWA Score Nausea/Vomitin-Mild Nausea/No Vomiting Muscle Tremors: 1-None Visible, but [place] Anxiety: 2 Agitation: 0-Normal Activity Paroxysmal Sweats: No Perspiration Orientation: 0-Oriented Tacttile Disturbances: 0-None Auditory Disturbances: 0-None Visual Disturbances: 1-Very Mild Sensitivity Headache: 1-Very Mild CIWA-Ar Total Score: 6 BHS Progress Note (SOAP) Subjective: 49 years old male was admitted on 12/17/19 for alcohol withdrawal sx management treating with librium detox regiment medical history of hiv hypertension no current treatment bmi 19.5 change ensure to 120 ml po tid with meals Objective: 12/20/19 09:49 Vital Signs - 24 hr 12/19/19 12/19/19 12/19/19 12:59 17:05 20:39 Temperature 97.7 F 97.9 F 98.1 F Pulse Rate 74 81 93 H Respiratory 17 18 18 Rate Blood Pressure 91/57 L 97/61 135/76 O2 Sat by Pulse 96 97 Oximetry (%) 12/20/19 12/20/19 06:14 08:43 Temperature 97.8 F 97.1 F L Pulse Rate 88 81 Respiratory 18 18 Rate Blood Pressure 114/77 107/73 O2 Sat by Pulse 96 Oximetry (%) Laboratory Tests 12/17/19 12/17/19 12/17/19 11:15 11:15 11:15 WBC RBC Hgb Hct MCV MCH MCHC RDW Plt Count MPV Sodium Potassium Chloride Carbon Dioxide Anion Gap BUN Creatinine Est GFR (CKD-EPI)AfAm Est GFR (CKD-EPI)NonAf Random Glucose Calcium Total Bilirubin AST ALT Alkaline Phosphatase Total Protein Albumin Syphilis Serology Reactive A* RPR Titer Reactive 1:1 H COVID-19 (ANAY) Not detected 12/17/19 12/17/19 13:40 13:40 WBC 3.8 L RBC 3.84 L Hgb 11.7 Hct 34.2 L MCV 88.9 MCH 30.4 MCHC 34.2 RDW 14.6 Plt Count 194 D MPV 8.9 Sodium 141 Potassium 3.2 L Chloride 105 Carbon Dioxide 30 Anion Gap 5 L BUN 14.9 Creatinine 1.2 Est GFR (CKD-EPI)AfAm 82.96 Est GFR (CKD-EPI)NonAf 71.58 Random Glucose 88 Calcium 8.9 Total Bilirubin 0.5 AST 46 H ALT 44 Alkaline Phosphatase 114 Total Protein 8.5 H Albumin 3.5 Syphilis Serology RPR Titer COVID-19 (ANAY) 12/20/19 09:50 syphilis contacted treated by history Assessment: 12/20/19 09:51 alcohol withdrawal Plan: librium regiment
[2019-12-20] MEDS ORDERED: DIPHENOXYLATE 2.5/ATROPINE.025 1 COMBO TABLET PO ONE (10:13)
[2019-12-20] MEDS: PRENATAL VITAMINS W/ FOLIC ACID TABLET (FP) PO SCH (10:26)
[2019-12-20] MEDS: METHOCARBAMOL 500 MG TABLET PO PRN (10:27)
[2019-12-20] MEDS: NICOTINE 7 MG/24 HOURS TOPICAL PATCH TD SCH (10:57)
[2019-12-20] MEDS: MELATONIN 5 MG TABLETS PO SCH (22:51)
[2019-12-20] MEDS: THIAMINE HCL 100 MG TABLET (FP) PO SCH (22:51)
[2019-12-21] MEDS: METHOCARBAMOL 500 MG TABLET PO PRN (02:41)
[2019-12-21] MEDS: chlordiazePOXIDE HCL 10 MG CAPSULE PO SCH ×2 (05:40→18:03)
[2019-12-21] MEDS: hydrOXYzine PAMOATE 25 MG CAPSULE (FP) PO SCH ×5 (05:42→22:32)
--- NOTE | 2019-12-21 09:52 | PN ---
S CIWA - CIWA Score Nausea/Vomitin-No Nausea/No Vomiting Muscle Tremors: 1-None Visible, but [place] Anxiety: 1-Mildly Anxious Agitation: 0-Normal Activity Paroxysmal Sweats: No Perspiration Orientation: 0-Oriented Tacttile Disturbances: 0-None Auditory Disturbances: 0-None Visual Disturbances: 1-Very Mild Sensitivity Headache: 0-None Present CIWA-Ar Total Score: 3 BHS Progress Note (SOAP) Subjective: 49 years old male was admitted on 12/17/19 for alcohol withdrawal sx management treating with libirum detox regiment feels better today less tremor mild anxiety discussing aftercare with staff mr medrano prefers [facility] for alcohol abuse treatment Objective: 12/21/19 09:55 Vital Signs - 24 hr 12/20/19 12/20/19 12/21/19 17:01 20:46 05:34 Temperature 98.1 F 97.9 F 97.0 F L Pulse Rate 103 H 93 H 94 H Respiratory 18 18 18 Rate Blood Pressure 102/77 111/74 103/67 O2 Sat by Pulse 97 96 Oximetry (%) Laboratory Tests 12/17/19 12/17/19 12/17/19 11:15 11:15 11:15 WBC RBC Hgb Hct MCV MCH MCHC RDW Plt Count MPV Sodium Potassium Chloride Carbon Dioxide Anion Gap BUN Creatinine Est GFR (CKD-EPI)AfAm Est GFR (CKD-EPI)NonAf Random Glucose Calcium Total Bilirubin AST ALT Alkaline Phosphatase Total Protein Albumin Syphilis Serology Reactive A* RPR Titer Reactive 1:1 H COVID-19 (ANAY) Not detected 12/17/19 12/17/19 13:40 13:40 WBC 3.8 L RBC 3.84 L Hgb 11.7 Hct 34.2 L MCV 88.9 MCH 30.4 MCHC 34.2 RDW 14.6 Plt Count 194 D MPV 8.9 Sodium 141 Potassium 3.2 L Chloride 105 Carbon Dioxide 30 Anion Gap 5 L BUN 14.9 Creatinine 1.2 Est GFR (CKD-EPI)AfAm 82.96 Est GFR (CKD-EPI)NonAf 71.58 Random Glucose 88 Calcium 8.9 Total Bilirubin 0.5 AST 46 H ALT 44 Alkaline Phosphatase 114 Total Protein 8.5 H Albumin 3.5 Syphilis Serology RPR Titer COVID-19 (ANAY) 12/21/19 09:55 syphilis contacted treated Assessment: 12/21/19 09:55 alcohol withdrawal Plan: librium regiment
[2019-12-21] MEDS: PRENATAL VITAMINS W/ FOLIC ACID TABLET (FP) PO SCH (10:09)
[2019-12-21] MEDS: NICOTINE 7 MG/24 HOURS TOPICAL PATCH TD SCH (10:10)
[2019-12-21] MEDS: MELATONIN 5 MG TABLETS PO SCH (22:32)
[2019-12-21] MEDS: THIAMINE HCL 100 MG TABLET (FP) PO SCH (22:32)
[2019-12-22] MEDS ORDERED: chlordiazePOXIDE HCL 10 MG CAPSULE PO ONE (05:00)
[2019-12-22] MEDS: hydrOXYzine PAMOATE 25 MG CAPSULE (FP) PO SCH (06:01)
[2019-12-22 06:11] VITALS: BP 115/67; PULSE 77; TEMP 98.2
--- NOTE | 2019-12-22 09:31 | DS ---
[facility] Detox Discharge Summary Admission Date: 12/17/19 Discharge Date: 12/22/19 - History Present History: Alcohol Dependence Additional Comments: 49 years old male was admitted on 12/17/19 for alcohol withdrawal sx management treated with librium detox regiment prefers not to be seen by a psychiatrist mr medrano has completed the librium regiment and is tolerated well General Appearance: Yes: No Apparent Distress, Thin, mild Anxious HEENTM: Yes: EOMI, Hearing grossly Normal, Normocephalic, Normal Voice Respiratory: Yes: Lungs Clear, No Respiratory Distress, No Accessory Muscle Use Breast: Yes: Breast Exam Deferred Cardiology: Yes: Regular Rhythm, Regular Rate Abdominal: Yes: Non Tender, Flat, Soft, Decreased BS Genitourinary: Yes: Other (deferred) Back: Yes: Normal Inspection Musculoskeletal: Yes: Gait Steady Extremities: Yes: Normal Inspection, Non-Tender Neurological: Yes: Alert, Normal Response Integumentary: Yes: Within Normal Limits Pertinent Past History: time for discharge 35 minutes medical history of hiv treated with genoya last dose "while" ago encourage mr medrano returning to infectious disease specialist for follow up - Physical Exam Results Vital Signs: Vital Signs Temperature 98.2 F 12/22/19 06:10 Pulse Rate 77 12/22/19 06:10 Respiratory Rate 18 12/22/19 06:10 Blood Pressure 115/67 12/22/19 06:10 O2 Sat by Pulse Oximetry (%) 97 12/22/19 06:10 Pertinent Admission Physical Exam Findings: alcohol withdrawal Vital Signs - 24 hr 12/21/19 12/21/19 12/21/19 12:50 16:25 20:50 Temperature 97.5 F L 97.7 F 98.0 F Pulse Rate 89 95 H 81 Respiratory 18 18 18 Rate Blood Pressure 111/70 113/75 109/73 O2 Sat by Pulse 97 97 95 Oximetry (%) 12/22/19 06:10 Temperature 98.2 F Pulse Rate 77 Respiratory 18 Rate Blood Pressure 115/67 O2 Sat by Pulse 97 Oximetry (%) Laboratory Tests 12/17/19 12/17/19 12/17/19 11:15 11:15 11:15 WBC RBC Hgb Hct MCV MCH MCHC RDW Plt Count MPV Sodium Potassium Chloride Carbon Dioxide Anion Gap BUN Creatinine Est GFR (CKD-EPI)AfAm Est GFR (CKD-EPI)NonAf Random Glucose Calcium Total Bilirubin AST ALT Alkaline Phosphatase Total Protein Albumin Syphilis Serology Reactive A* RPR Titer Reactive 1:1 H COVID-19 (ANAY) Not detected 12/17/19 12/17/19 13:40 13:40 WBC 3.8 L RBC 3.84 L Hgb 11.7 Hct 34.2 L MCV 88.9 MCH 30.4 MCHC 34.2 RDW 14.6 Plt Count 194 D MPV 8.9 Sodium 141 Potassium 3.2 L Chloride 105 Carbon Dioxide 30 Anion Gap 5 L BUN 14.9 Creatinine 1.2 Est GFR (CKD-EPI)AfAm 82.96 Est GFR (CKD-EPI)NonAf 71.58 Random Glucose 88 Calcium 8.9 Total Bilirubin 0.5 AST 46 H ALT 44 Alkaline Phosphatase 114 Total Protein 8.5 H Albumin 3.5 Syphilis Serology RPR Titer COVID-19 (ANAY) syphilis contacted treated - Treatment Hospital Course: Detox Protocol Followed, Detoxed Safely, Responded well, Discharged Condition Good, Rehab Referral Accepted Patient has Accepted a Rehab Referral to: [facility] - Medication Discharge Medications: Ambulatory Orders NK [No Known Home Medication] 07/30/18 - Diagnosis (1) Substance induced mood disorder Current Visit: Yes Status: Suspected (2) Syphilis contact, treated Current Visit: Yes Status: Chronic (3) Alcohol dependence Current Visit: Yes Status: Acute (4) Human immunodeficiency virus infection Current Visit: Yes Status: Chronic (5) Weight decreased Current Visit: Yes Status: Chronic (6) Nicotine dependence Current Visit: Yes Status: Acute Qualifiers: Nicotine product type: cigarettes Substance use status: in withdrawal Qualified Code(s): F17.213 - Nicotine dependence, cigarettes, with withdrawal (7) HIV (human immunodeficiency virus infection) Current Visit: Yes Status: Chronic Qualifiers: HIV symptom status: asymptomatic Qualified Code(s): Z21 - Asymptomatic h uman immunodeficiency virus [HIV] infection status - AMA Did Patient Leave Against Medical Advice: No CIWA Score - CIWA Score Nausea/Vomitin-No Nausea/No Vomiting Muscle Tremors: 1-None Visible, but [place] Anxiety: 0-No Anxiety, at Ease Agitation: 0-Normal Activity Paroxysmal Sweats: No Perspiration Orientation: 0-Oriented Tacttile Disturbances: 0-None Auditory Disturbances: 0-None Visual Disturbances: 0-None Headache: 0-None Present CIWA-Ar Total Score: 1
== END 2019-12-22 09:02 | disposition home or self-care (01) | DRG 774 ==
LOC: YASAS 08:52 → Y3N 10:49
PROVIDERS: ADMIT Allergy & Immunology; ATTEND Allergy & Immunology
PROC: HZ2ZZZZ Detoxification Services for Substance Abuse Treatment (ICD-10-PCS; principal; 2019-12-17)
DX: F10.230 Alcohol dependence with withdrawal, uncomplicated (principal); F14.20 Cocaine dependence, uncomplicated; F12.20 Cannabis dependence, uncomplicated; F17.213 Nicotine dependence, cigarettes, with withdrawal; F19.24 Other psychoactive substance dependence with psychoactive substance-induced mood disorder; F41.9 Anxiety disorder, unspecified; F32.9 Major depressive disorder, single episode, unspecified; Z21 Asymptomatic human immunodeficiency virus [HIV] infection status; E87.6 Hypokalemia; R63.4 Abnormal weight loss; Z68.1 Body mass index [BMI] 19.9 or less, adult
CPT/HCPCS: 36415; 80053; 85027; 86593; 86780; Q0162; U0003